=== PATIENT | male | born 1960 | race Caucasian/White ===

== ENCOUNTER 2016-10-03 10:13 | Emergency (ER) | payer OTHER ==
--- NOTE | 2016-10-03 10:20 | ER Document Report ---
ED Medical Screen (RME) - General Stated Complaint: TOOTHACHE Notes: Patient is a 56-year-old male presents emergency Department complaining of toothache. pain over upper right front and left lower teeth for about 3 weeks that has become more severe, admits to drainage. denies fevers or chills. patient says he has dental caries and decay from dry mouth from DM II. has dental appointment this week for evaluation of extraction I have greeted and performed a rapid initial assessment of this patient. A comprehensive ED assessment and evaluation of the patient, analysis of test results and completion of the medical decision making process will be conducted by additional ED providers. TRAVEL OUTSIDE OF THE [place] IN LAST 30 DAYS: No - Related Data Allergies/Adverse Reactions: No Known Allergies Allergy (Verified 05/21/16 08:15) Past Medical History - Past Medical History Cardiac Medical History: Reports: Hx Hypertension Pulmonary Medical History: Reports: Hx Pneumonia - Pneumonia, 10 years ago. Neurological Medical History: Denies: Hx Seizures Endocrine Medical History: Reports: Hx Diabetes Mellitus Type 1, Hx Diabetes Mellitus Type 2 GI Medical History: Reports: Hx Gastroesophageal Reflux Disease Musculoskeltal Medical History: Reports Hx Arthritis Psychiatric Medical History: Denies: Hx Depression Past Surgical History: Reports: Hx Cholecystectomy, Hx Orthopedic Surgery - left shoulder scope - Immunizations Immunizations up to date: Yes Hx Diphtheria, Pertussis, Tetanus Vaccination: Yes
[2016-10-03] MEDS ORDERED: CLINDAMYCIN 600 MG/D5W RTU 50 ML IV ONE (11:49)
--- NOTE | 2016-10-03 11:52 | ER Document Report ---
ED Oral Problem - General Chief Complaint: Toothache Stated Complaint: TOOTHACHE Time seen by provider: 11:50 Mode of Arrival: Ambulatory Information source: Patient Notes: 56-year-old male presents to ED for dental pain. All of his teeth are rotten and broken off at different stages. He states he has been having abscesses that have come up and he is cut them with his knife to the upper gums several times. States he can't get a dental appointment next week to examine his teeth and decide what the plan is for them. He states these abscesses have been coming up for at least the last 3 weeks that he has been cutting denies any fevers or chills TRAVEL OUTSIDE OF THE [place] IN LAST 30 DAYS: No - HPI Patient complains to provider of: Toothache Onset: Other - Chronic Quality of pain: Sharp, Throbbing Severity: Moderate Pain Level: 4 Associated symptoms: Toothache Worsened by: Cold Relieved by: Nothing Similar symptoms previously: Yes Recently seen / treated by doctor/dentist: Yes - Related Data Allergies/Adverse Reactions: No Known Allergies Allergy (Verified 10/03/16 10:17) Past Medical History - General Information source: Patient - Social History Smoking Status: Unknown if Ever Smoked Chew tobacco use (# tins/day): No Frequency of alcohol use: None Drug Abuse: None Family History: Arthritis, CAD, Malignancy, Other - Father: CAD, prostate cancer. Sister: Lung cancer. Mother: Arthritis, Alzheimer's. Patient has suicidal ideation: No Patient has homicidal ideation: No - Past Medical History Cardiac Medical History: Reports: Hx Hypertension Pulmonary Medical History: Reports: Hx Pneumonia - Pneumonia, 10 years ago. EENT Medical History: Reports: None Neurological Medical History: Reports: None Endocrine Medical History: Reports: Hx Diabetes Mellitus Type 2 Renal/ Medical History: Reports: None Malignancy Medical History: Reports None GI Medical History: Reports: Hx Gastroesophageal Reflux Disease Musculoskeltal Medical History: Reports Hx Arthritis Skin Medical History: Reports None Psychiatric Medical History: Reports: None Traumatic Medical History: Reports: None Infectious Medical History: Reports: None Past Surgical History: Reports: Hx Cholecystectomy, Hx Orthopedic Surgery - left shoulder scope - Immunizations Immunizations up to date: Yes Hx Diphtheria, Pertussis, Tetanus Vaccination: Yes Review of Systems - Review of Systems Constitutional: No symptoms reported EENT: Dental problem Cardiovascular: No symptoms reported Respiratory: No symptoms reported Gastrointestinal: No symptoms reported Genitourinary: No symptoms reported Male Genitourinary: No symptoms reported Musculoskeletal: No symptoms reported Skin: No symptoms reported Hematologic/Lymphatic: No symptoms reported Neurological/Psychological: No symptoms reported Physical Exam - Vital signs Vitals: Temp Pulse Resp BP Pulse Ox 97.7 F 87 18 153/89 H 95 10/03/16 10:16 10/03/16 10:16 10/03/16 10:16 10/03/16 10:16 10/03/16 10:16 Interpretation: Normal - General General appearance: Appears well, Alert - HEENT Head: Normocephalic, Atraumatic Eyes: Normal Pupils: PERRL Ears: Normal External canal: Normal Tympanic membrane: Normal Sinus: Normal Nasal: Normal, Other Mouth/Lips: Caries Mucous membranes: Normal Teeth diagram: 1 - Multiple severely decayed teeth. Many are broken off at the gumline. Upper and lower gums have gingivitis with 3 small areas that he has cut with a knife when he states they got large abscesses on them. No abscess is noted at this time Pharynx: Normal Neck: Normal - Respiratory Respiratory status: No respiratory distress Chest status: Nontender Breath sounds: Normal Chest palpation: Normal - Cardiovascular Rhythm: Regular Heart sounds: Normal auscultation Murmur: No - Abdominal Inspection: Normal Distension: No distension Bowel sounds: Normal Tenderness: Nontender Organomegaly: No organomegaly - Back Back: Normal, Nontender - Extremities General upper extremity: Normal inspection, Nontender, Normal color, Normal ROM , Normal temperature General lower extremity: Normal inspection, Nontender, Normal color, Normal ROM , Normal temperature, Normal weight bearing. No: Mike's sign - Neurological Neuro grossly intact: Yes Cognition: Normal Orientation: AAOx4 [place] Coma Scale Eye Opening: Spontaneous Erick Coma Scale Verbal: Oriented [place] Coma Scale Motor: Obeys Commands Erick Coma Scale Total: 15 Speech: Normal Motor strength normal: LUE, RUE, LLE, RLE Sensory: Normal - Psychological Associated symptoms: Normal affect, Normal mood - Skin Skin Temperature: Warm Skin Moisture: Dry Skin Color: Normal Course - Vital Signs Vital signs: Temp Pulse Resp BP Pulse Ox 97.8 F 82 16 140/82 H 98 10/03/16 13:03 10/03/16 13:03 10/03/16 13:03 10/03/16 13:03 10/03/16 13:03 Discharge - Discharge Clinical Impression: Pain due to dental caries, Gingivitis Disposition: HOME, SELF-CARE Additional Instructions: TOOTHACHE: Your pain is due to dental decay. The tooth must be repaired in order for you to feel better. You will, therefore, be referred to a dentist. We do not have dentists on the staff at [facility]. Severe swelling or drainage around a tooth usually means a dental abscess. This also requires evaluation and treatment by the dentist, but antibiotics may be prescribed while awaiting dental treatment. You should be rechecked immediately if you develop major swelling of the face, increasing pain, a lump in the jaw or gums, headache, difficulty swallowing, or fever. ORAL NARCOTIC MEDICATION: You have been given a prescription for pain control. This medication is a narcotic. It's best taken with food, as nausea can result if taken on an empty stomach. Don't operate machinery or drive within six hours of taking this medication. Do not combine this medicine with alcohol, or with any medication which can cause sedation (such as cold tablets or sleeping pills) unless you get permission from the physician. Narcotics tend to cause constipation. If possible, drink plenty of fluids and eat a diet high in fiber and fruits. Please be aware that prescription narcotics also have the potential for abuse. People become addicted to these medications because of the general sense of wellbeing that they induce. This feeling along with a significant reduction in tension, anxiety, and aggression provides a stimulating seductive quality to these drugs. Once your pain is under control, we encourage you to discard your unused narcotics. CLINDAMYCIN: You have been given a prescription for the antibiotic clindamycin. It is often prescribed for infections in the mouth, such as dental infections or abscesses, and for skin infections due to MRSA. It's important that you take all the medication, unless instructed otherwise by your physician. Failure to complete the entire course can result in relapse of your condition. Common side effects of antibiotics include nausea, intestinal cramping, or diarrhea. Women may develop vaginal yeast infections, and babies can get yeast (thrush) in the mouth following the use of antibiotics. Contact your physician if you develop significant side effects from this medication. Allergy to this antibiotic can result in hives, wheezing, faintness, or itching. If symptoms of allergy occur, stop the medication and call the doctor. Chronic Pain Control Stress, inactivity, and depression make pain more severe regardless of the cause of the pain. Stress and poor physical condition can cause pain such as headaches and backache. Relaxation: Rest in a quiet place with your eyes closed for 20 minutes twice daily. Concentrate on a pleasant image, or simply "feel" your breathing. Clear your mind. Stress management: Deal with your "stressors." Either take action, or eliminate the stressor from your life. Don't let things hang over you. Accept those things you can't change. Nutrition: Eat small, balanced meals -- don't skip, don't overeat. Meals should be high-carbohydrate, low-sugar, low-fat. Exercise: Exercise helps painful conditions and eases stress. Get 30 minutes of moderate exercise, five days a week. Do an activity that does not flare your pain. Precautions: Pain which continues to disrupt daily activities, or which changes in nature, requires a medical evaluation. Pain Clinic referral is available. We do not manage chronic pain in the Emergency Department. We will try to appropriately help you through an acute flare of your chronic painful condition , but for on-going chronic pain that does not improve, you will need to see your private doctor or instructor painting. We do not provide repeated medication management of chronic painful conditions. If you wish, we can provide the name of local pain management physicians. FOLLOW-UP CARE: You have been referred for follow-up care to the dentists listed below. Call the dentists office for an appointment as you were instructed or within the next two days. If you experience worsening or a significant change in your symptoms, notify the physician immediately or return to the Emergency Department at any time for re-evaluation. [facility] [address] [place], [place] Wednesday mornings, by appointment [facility] [address] [place] [address] [employer] [address] [facility] [address] [facility] [address] [facility] [email or web address] [facility] [address] [place] [address] Wednesday- 8:00am to 5:00 pm Will see patients from other [facility]. Charges based on income and family size and accepts Medicare, Medicaid, and Insurances Will pull molars [facility] [id number] Hours of Operation 8:00 am - 4:30 pm weekdays The following dental offices accept Medicaid: [facility] Dr. Ayala Dr. Posadas Dr. Goldsmith Dr. Moore Archie Lund Lutsavage, and [facility] oral surgery Dr. Garcia ([place]) Dr. Lang ([place]) [facility] Drs. Bojorquez and Ganseh ([place]) Dr. Castellon ([place]) [facility] Dr. Nix ([place]) Drs. Good and ([place]) Medicaid Care Line Prescriptions: Hydrocodone/Acetaminophen [[place] 5-325 mg Tablet] 1 tab PO Q6HP PRN #7 tablet PRN Reason: Clindamycin HCl [Cleocin 300 mg Capsule] 300 mg PO Q6 #28 capsule Forms: Elevated Blood Pressure
[2016-10-03 13:07] VITALS: BP 140/82
== END 2016-10-03 13:05 | disposition home or self-care (01) ==
LOC: ER 10:13
DX: K05.10 Chronic gingivitis, plaque induced (principal); K02.9 Dental caries, unspecified; K08.89 Other specified disorders of teeth and supporting structures
CPT/HCPCS: 96365; 99282

== ENCOUNTER 2016-10-23 09:41 | Emergency (ER) | payer OTHER ==
[2016-10-23] MEDS ORDERED: DEXAMETHASONE SOD PHOS INJ 10 MG/1 ML VIAL IM ONE (10:34)
[2016-10-23] MEDS ORDERED: KETOROLAC TROMETHAMINE 60 MG/2 ML SDV IM ONE (10:34)
--- NOTE | 2016-10-23 10:40 | ER Document Report ---
ED Extremity Problem, Upper - General Chief Complaint: Shoulder Pain Stated Complaint: RIGHT SHOULDER PAIN Time seen by provider: 10:10 Mode of Arrival: Ambulatory Information source: Patient Notes: 56-year-old male presents to ED for right shoulder pain he says that it has been hurting for about 1-1/2 weeks. 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 Yesterday as he was pending the pain got progressively worse. He states now he cannot even bean picker his little dog unable to reach above his head. States he took 2 Percocet and some Tylenol with no relief. TRAVEL OUTSIDE OF THE [place] 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 Exacerbated by: Movement, Exertion Relieved by: Rest, Positioning Similar symptoms previously: Yes Recently seen / treated by doctor: No - Related Data Allergies/Adverse Reactions: No Known Allergies Allergy (Verified 10/23/16 09:44) Past Medical History - General Information source: Patient - Social History Smoking Status: Never Smoker Cigarette use (# per day): No Chew tobacco use (# tins/day): No Smoking Education Provided: No Frequency of alcohol use: None Drug Abuse: None Occupation: [employer] Lives with: Friend - Roommate Family History: Arthritis, CAD, Hyperlipidemia, Hypertension, Malignancy, Other - Father: CAD, prostate cancer. Sister: Lung cancer. Mother: Arthritis, Alzheimer's.. denies: COPD, CVA, DM Patient has suicidal ideation: No Patient has homicidal ideation: No - Past Medical History Cardiac Medical History: Reports: Hx Hypertension Pulmonary Medical History: Reports: Hx Pneumonia - Pneumonia, 10 years ago. EENT Medical History: Reports: None Neurological Medical History: Reports: None. 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 GI Medical History: Reports: Hx Gastroesophageal Reflux Disease, Hx Hiatal Hernia, Hx Endoscopy Musculoskeltal Medical History: Reports Hx Arthritis, Reports Hx Musculoskeletal Deformity - Shoulder spurs left, Reports Hx Musculoskeletal Trauma - Wrist fracture toward left bicep Skin Medical History: Reports None Psychiatric Medical History: Reports: Hx Anxiety Traumatic Medical History: Reports: Hx Fractures - Wrist Infectious Medical History: Reports: None Past Surgical History: Reports: Hx Cholecystectomy, Hx Orthopedic Surgery - left shoulder spurs removed and left bicep prepared, Other - 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 - Immunizations Immunizations up to date: Yes Hx Diphtheria, Pertussis, Tetanus Vaccination: Yes Review of Systems - Review of Systems Constitutional: No symptoms reported EENT: No symptoms reported Cardiovascular: No symptoms reported Respiratory: No symptoms reported Gastrointestinal: No symptoms reported Genitourinary: No symptoms reported Male Genitourinary: No symptoms reported Musculoskeletal: Joint pain - Right shoulder, Muscle pain - Right shoulder Skin: No symptoms reported Hematologic/Lymphatic: No symptoms reported Neurological/Psychological: No symptoms reported Physical Exam - Vital signs Vitals: Temp Pulse Resp BP Pulse Ox 98.2 F 83 18 173/99 H 96 10/23/16 09:45 10/23/16 09:45 10/23/16 09:45 10/23/16 09:45 10/23/16 09:45 Interpretation: Normal - General General appearance: Appears well, Alert - HEENT Head: Normocephalic, Atraumatic Eyes: Normal Pupils: PERRL - Respiratory Respiratory status: No respiratory distress Chest status: Nontender Breath sounds: Normal Chest palpation: Normal - Cardiovascular Rhythm: Regular Heart sounds: Normal auscultation Murmur: No - Abdominal Inspection: Normal Distension: No distension Bowel sounds: Normal Tenderness: Nontender Organomegaly: No organomegaly - Back Back: Normal, Nontender - Extremities General upper extremity: Normal color, Normal temperature General lower extremity: Normal inspection, Nontender, Normal color, Normal ROM , Normal temperature, Normal weight bearing. No: Mike's sign Shoulder: Tender, Limited ROM - Neurological Neuro grossly intact: Yes Cognition: Normal Orientation: AAOx4 [place] Coma Scale Eye Opening: Spontaneous Erick Coma Scale Verbal: Oriented [place] Coma Scale Motor: Obeys Commands Erick Coma Scale Total: 15 Speech: Normal Motor strength normal: LUE, RUE, LLE, RLE Sensory: Normal - Psychological Associated symptoms: Normal affect, Normal mood - Skin Skin Temperature: Warm Skin Moisture: Dry Skin Color: Normal Course - Re-evaluation Re-evalutation: 10/23/16 12:29 Discussed x-rays and blood pressure with patient patient to follow-up with orthopedics for his shoulder pain and family doctor for his elevated blood pressure patient states that he would like a list of local doctors because it takes too long to get in to [facility] this was provided to patient. - Vital Signs Vital signs: Temp Pulse Resp BP Pulse Ox 98.2 F 83 18 173/99 H 96 10/23/16 09:45 10/23/16 09:45 10/23/16 09:45 10/23/16 09:45 10/23/16 09:45 - Diagnostic Test Radiology reviewed: Image reviewed, Reports reviewed Procedures - Immobilization Right Shoulder Immobilizer type: Sling Performed by: PCT Post-Proc Neuro Vasc Exam: Normal Alignment checked and good: Yes Discharge - Discharge Clinical Impression: Right shoulder injury Qualifiers: Encounter type: initial encounter Qualified Code(s): S49.91XA - Unspecified injury of right shoulder and upper arm, initial encounter Condition: Stable Disposition: HOME, SELF-CARE Instructions: Exercise Program for the Shoulder ([facility]), Family Physicians / Practices Additional Instructions: Shoulder Injury You have injured your shoulder. This usually results from stretching or tearing of the tendons during trauma. Time and protection are required in order to heal properly. Many injuries are quite disabling, and should be taken seriously. Initial treatment includes cold packs and a sling to rest the shoulder. The physician has assessed the seriousness of your injury, and has outlined a treatment plan. Understand that this treatment may change, depending on how you progress. If a re-examination was recommended, it is important that you follow up as instructed. Some shoulder injuries (such as partial tear of the rotator cuff) are only suspected after you've failed to improve. Call us if there's severe pain, numbness, or loss of function. Sling as Treatment A sling has been applied to protect the injury. This is adequate immobilization for this type of injury -- no cast or brace is required. Keep the sling on at all times until instructed to remove it by the doctor. Even though no cast or splint is needed, you must use the sling. If you use the arm too soon, it may not heal properly! If necessary, the sling can be adjusted for comfort. Return if you are encountering problems with the sling. Toradol Injection You have been given an injection of ketorolac tromethamine (Toradol). This is an excellent, safe drug for pain control. It also has potent antiinflammatory action. You should have significant pain relief within about one hour. Toradol is not addicting and is non-sedating. It does not interfere with driving or work. Call or return if you develop itching, hives, shortness of breath, or rash. STEROID MEDICATION: You have been given an injection of medicine of the cortisone/steroid class. This medication is used to control inflammation or allergy. It is often continued as a pill for a short period of time, until the acute process subsides. There are usually no side effects from short-term use of cortisone-like medications. Some persons feel an increased sense of well-being and are not sleepy at bedtime. Long-term use of cortisone medications is best avoided, unless required for a severe condition. If your condition does not remit, or relapses after the course of corticosteroid medication, you should consult your physician. Ultram Ultram is an excellent drug for pain relief. It is not a narcotic, but it works in a similar way. Ultram can take up to two hours for full effect. Although not addicting, Ultram is best avoided in patients with a history of drug abuse. Ultram should not be used with alcohol, sleeping pills, or narcotics. If you're prone to seizures, Ultram can make you more likely to have a seizure. Ultram can be hazardous when combined with MAO-inhibitor antidepressants (such as Nardil or Parnate). Be sure your doctor is aware of all medicines you are taking. Persons with severe liver or kidney disease should increase the time between doses of Ultram. Discuss this with your doctor if you're uncertain. Side effects of Ultram can include dizziness, nausea, constipation, sleepiness, and itching. (These side effects are also seen with narcotic pain medicines.) Please call your doctor if you have other disturbing effects. FOLLOW-UP CARE: If you have been referred to a physician for follow-up care, call the physician s office for an appointment as you were instructed or within the next two days. If you experience worsening or a significant change in your symptoms, notify the physician immediately or return to the Emergency Department at any time for re-evaluation. Prescriptions: Tramadol HCl [Ultram] 50 mg PO BIDP PRN #14 tablet PRN Reason: Pain Scale Of 4 Forms: Elevated Blood Pressure Referrals: [facility] [Primary Care Provider] - Follow up as needed ROEL MARTIN MD [ACTIVE STAFF] - Follow up as needed
[2016-10-23 12:41] VITALS: BP 151/97
== END 2016-10-23 12:25 | disposition home or self-care (01) ==
LOC: ER 09:41
DX: S49.91XA Unspecified injury of right shoulder and upper arm, initial encounter (principal); X58.XXXA Exposure to other specified factors, initial encounter
CPT/HCPCS: 99283; 96372; 73030; J1885; J1100

== ENCOUNTER 2017-05-04 09:57 | Emergency (ER) | payer OTHER ==
[2017-05-04 12:07] VITALS: BP 165/87
--- NOTE | 2017-05-04 12:10 | ER Document Report ---
ED General - General Chief Complaint: Leg Pain Stated Complaint: RIGHT LEG AND FOOT PAIN Time Seen by Provider: 05/04/17 10:16 TRAVEL OUTSIDE OF THE [place] IN LAST 30 DAYS: No - HPI Patient complains to provider of: Right leg swelling Notes: Patient coming in for right leg swelling and pain below the cath ongoing for the last 24-48 hours. Denies any recent travel denies any recent trauma. Patient denies a history PE in the past. Denies fevers chills nausea vomiting diarrhea. - Related Data Allergies/Adverse Reactions: No Known Allergies Allergy (Verified 05/04/17 10:01) Past Medical History - Social History Smoking Status: Never Smoker Chew tobacco use (# tins/day): No Frequency of alcohol use: None Drug Abuse: None Family History: Arthritis, CAD, Hyperlipidemia, Hypertension, Malignancy, Other - Father: CAD, prostate cancer. Sister: Lung cancer. Mother: Arthritis, Alzheimer's.. denies: COPD, CVA, DM - Past Medical History Cardiac Medical History: Reports: Hx Hypertension Pulmonary Medical History: Reports: Hx Pneumonia - Pneumonia, 10 years ago. Neurological Medical History: Denies: Hx Seizures Endocrine Medical History: Reports: Hx Diabetes Mellitus Type 2 Renal/ Medical History: Denies: Hx Peritoneal Dialysis GI Medical History: Reports: Hx Gastroesophageal Reflux Disease, Hx Hiatal Hernia, Hx Endoscopy Musculoskeltal Medical History: Reports Hx Arthritis, Reports Hx Musculoskeletal Deformity - Shoulder spurs left, Reports Hx Musculoskeletal Trauma - Wrist fracture toward left bicep Psychiatric Medical History: Reports: Hx Anxiety Traumatic Medical History: Reports: Hx Fractures - Wrist Past Surgical History: Reports: Hx Cholecystectomy, Hx Orthopedic Surgery - left shoulder spurs removed and left bicep prepared, Other - 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 - Immunizations Immunizations up to date: Yes Hx Diphtheria, Pertussis, Tetanus Vaccination: Yes Review of Systems - Review of Systems Constitutional: No symptoms reported EENT: No symptoms reported Cardiovascular: No symptoms reported Respiratory: No symptoms reported Gastrointestinal: No symptoms reported Genitourinary: No symptoms reported Male Genitourinary: No symptoms reported Musculoskeletal: Leg swelling Skin: No symptoms reported Hematologic/Lymphatic: No symptoms reported Neurological/Psychological: No symptoms reported -: Yes All other systems reviewed and negative Physical Exam - Vital signs Interpretation: Normal - General General appearance: Appears well, Alert - HEENT Head: Normocephalic, Atraumatic Eyes: Normal Pupils: PERRL - Respiratory Respiratory status: No respiratory distress Chest status: Nontender Breath sounds: Normal Chest palpation: Normal - Cardiovascular Rhythm: Regular Heart sounds: Normal auscultation Murmur: No - Abdominal Inspection: Normal Distension: No distension Bowel sounds: Normal Tenderness: Nontender Organomegaly: No organomegaly - Back Back: Normal, Nontender - Extremities General upper extremity: Normal inspection, Nontender, Normal color, Normal ROM , Normal temperature General lower extremity: Normal inspection, Nontender, Edema - 1-2+ edema of the right leg greater than the left. Patient does have pain to palpation of the right lower calf., Normal color, Normal ROM, Normal temperature, Normal weight bearing - Neurological Neuro grossly intact: Yes Cognition: Normal Orientation: AAOx4 [place] Coma Scale Eye Opening: Spontaneous [place] Coma Scale Verbal: Oriented [place] Coma Scale Motor: Obeys Commands Erick Coma Scale Total: 15 Speech: Normal Motor strength normal: LUE, RUE, LLE, RLE Sensory: Normal - Psychological Associated symptoms: Normal affect, Normal mood - Skin Skin Temperature: Warm Skin Moisture: Dry Skin Color: Normal Course - Re-evaluation Re-evalutation: 05/04/17 15:08 Doppler negative for DVT will have patient follow-up with local PCP also notified the ER social work specialist of need for follow-up. At this time patient was educated about elevation will be discharged home Discharge - Discharge Clinical Impression: Right leg swelling Condition: Good Disposition: HOME, SELF-CARE Instructions: Dependent Edema ([facility]), Elevation & Warmth ([facility]), Family Physicians / Practices Additional Instructions: Elevate your legs at night to help relieve the swelling. Follow-up with your primary care physician or the physicians provided. I will give her information to our ER social work specialist who will contact you and try and aid in establishing a follow-up appointmentAt this time there is no signs of acute injury infection blood clot causing your swelling this can be related to excess salt in her diet or excess fluid intake.
--- NOTE | 2017-05-04 16:14 | XCELERA REPORT ---
[address] [address] Lower Extremity Venous Evaluation Name: JESSICA REGAN Age: 56 yrs Gender: Male : 1960 Patient Status: Emergency Patient Location: ER Study Date: 05/04/2017 10:54 AM Procedure: Color flow and duplex imaging of the veins of the right lower extremity as well as the left Common Femoral vein. Reason For Study: RLE swelling Ordering Physician: ABHISHEK MADERA Performed By: Bethany Jean Right Sided Venous Evaluation Normal vessel filling wall to wall, compression and augmentation as well as Colour flow down to the infrageniculate veins. Left Sided Venous Evaluation The left common femoral vein is fully compressible. Spontaneous and phasic flow is present in the left common femoral vein. Interpretation Summary No duplex evidence of DVT or obstruction in the right lower extremity nor in the left Common Femoral vein. : ABHISHEK MADERA > Eriberto Castillo
== END 2017-05-04 12:07 | disposition home or self-care (01) ==
LOC: ER 09:57
DX: M79.89 Other specified soft tissue disorders (principal); M79.604 Pain in right leg; M79.661 Pain in right lower leg; M79.671 Pain in right foot; I10 Essential (primary) hypertension; E11.9 Type 2 diabetes mellitus without complications
CPT/HCPCS: 93971; 99284

== ENCOUNTER 2017-12-27 08:20 | Emergency (ER) | payer SELFPAY ==
[2017-12-27] MEDS ORDERED: VALSARTAN 40 MG TABLET PO ONE (08:53)
[2017-12-27] MEDS ORDERED: ASPIRIN 81 MG TABLET, CHEWABLE PO ONE (08:54)
--- NOTE | 2017-12-27 08:54 | ER Document Report ---
ED Medical Screen (RME) - General Chief Complaint: High Blood Pressure Stated Complaint: BLOOD PRESSURE ISSUE, CHEST PAIN Time Seen by Provider: 12/27/17 08:48 Mode of Arrival: Ambulatory Information source: Patient Notes: 57-year-old male history of hypertension who used to be 290 pounds but lost weight and was no longer on blood pressure medication presents with complaints of not feeling well over the past few days. Patient notes he has been less energetic, he denies any fevers or chills admits to intermittent mild chest discomfort which he states patient denies any neurological deficits but admits to mild headache blurry vision I have greeted and performed a rapid initial assessment of this patient. A comprehensive ED assessment and evaluation of the patient, analysis of test results and completion of the medical decision making process will be conducted by additional ED providers. PHYSICAL EXAMINATION: GENERAL: Well-appearing, well-nourished and in no acute distress. HEAD: Atraumatic, normocephalic. EYES: Pupils equal round extraocular movements intact, conjunctiva are normal. ENT: Nares patent NECK: Normal range of motion LUNGS: No respiratory distress Musculoskeletal: Normal range of motion NEUROLOGICAL: Normal speech, normal gait. PSYCH: Normal mood, normal affect. SKIN: Irritated right hair follicle parietal region TRAVEL OUTSIDE OF THE [place] IN LAST 30 DAYS: No - Related Data Allergies/Adverse Reactions: No Known Allergies Allergy (Verified 12/27/17 08:21) Past Medical History - Past Medical History Cardiac Medical History: Reports: Hx Hypertension Pulmonary Medical History: Reports: Hx Pneumonia - Pneumonia, 10 years ago. Neurological Medical History: Denies: Hx Seizures Endocrine Medical History: Reports: Hx Diabetes Mellitus Type 2 - no longer on medication Renal/ Medical History: Denies: Hx Peritoneal Dialysis GI Medical History: Reports: Hx Gastroesophageal Reflux Disease, Hx Hiatal Hernia, Hx Endoscopy Musculoskeltal Medical History: Reports Hx Arthritis, Reports Hx Musculoskeletal Deformity - Shoulder spurs left, Reports Hx Musculoskeletal Trauma - Wrist fracture toward left bicep Psychiatric Medical History: Reports: Hx Anxiety Traumatic Medical History: Reports: Hx Fractures - Wrist Past Surgical History: Reports: Hx Cholecystectomy, Hx Orthopedic Surgery - left shoulder spurs removed and left bicep prepared, Other - 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
[2017-12-27 09:31] LABS: ABSOLUTE EOSINOPHILS # (AUTO) 0.2 10^3/uL (0.0-0.6); ABSOLUTE LYMPHOCYTES (AUTO) 1.6 10^3/uL (0.5-4.7); ABSOLUTE MONOCYTES (AUTO) 0.4 10^3/uL (0.1-1.4); ABSOLUTE NEUT (AUTO) 3.7 10^3/uL (1.7-8.2); BASOPHILS % (AUTO) 0.6 % (0-2); EOSINOPHILS % (AUTO) 3.5 % (0-6); HEMATOCRIT 48.1 % (37.9-51.0); HEMOGLOBIN 16.2 g/dL (13.5-17.0); LYMPHOCYTES % (AUTO) 26.6 % (13-45); MEAN CORPUSCULAR HEMOGLOBIN 28.5 pg (27.0-33.4); MEAN CORPUSCULAR HGB CONC 33.6 g/dL (32.0-36.0); MEAN CORPUSCULAR VOLUME 85 fl (80-97); MONOCYTES % (AUTO) 6.7 % (3-13); PLATELET COUNT 187 10^3/uL (150-450); RED BLOOD COUNT 5.68 10^6/uL (4.35-5.55); RED CELL DISTRIBUTION WIDTH 14.4 % (11.5-14.0); SEGMENTED NEUTROPHILS % (AUTO) 62.6 % (42-78); TOTAL CELLS COUNTED % (AUTO) 100 %; WHITE BLOOD COUNT 5.9 10^3/uL (4.0-10.5)
--- NOTE | 2017-12-27 09:46 | RADIOLOGY REPORT (SQ) ---
EXAM DESCRIPTION: CHEST SINGLE VIEW COMPLETED DATE/TIME: 12/27/2017 9:21 am REASON FOR STUDY: chest pain COMPARISON: 01/17/2016 two-view chest 01/15/2014 AP chest EXAM PARAMETERS: NUMBER OF VIEWS: One view. TECHNIQUE: Single frontal radiographic view of the chest acquired. RADIATION DOSE: NA LIMITATIONS: None. FINDINGS: LUNGS AND PLEURA: No opacities, masses or pneumothorax. No pleural effusion. MEDIASTINUM AND HILAR STRUCTURES: No masses. Contour normal. HEART AND VASCULAR STRUCTURES: Heart normal in size. Normal vasculature. BONES: No acute findings. HARDWARE: None in the chest. OTHER: No other significant finding. IMPRESSION: NO ACUTE RADIOGRAPHIC FINDING IN THE CHEST. TECHNICAL DOCUMENTATION: JOB ID: [id number] [employer]- All Rights Reserved Reading location - IP/workstation name: [email or web address]
[2017-12-27 09:54] LABS: ALANINE AMINOTRANSFERASE 32 U/L (21-72); ALBUMIN 4.6 g/dL (3.5-5.0); ALKALINE PHOSPHATASE 96 U/L (38-126); ANION GAP 12 (5-19); ASPARTATE AMINO TRANSFERASE 33 U/L (17-59); BILIRUBIN,DIRECT 0.3 mg/dL (0.0-0.4); BILIRUBIN,TOTAL 0.4 mg/dL (0.2-1.3); BLOOD UREA NITROGEN 19 mg/dL (7-20); CALCIUM 9.6 mg/dL (8.4-10.2); CARBON DIOXIDE 30 mmol/L (22-30); CHLORIDE 104 mmol/L (98-107); CREATINE KINASE 105 U/L (55-170); GLUCOSE 94 mg/dL (75-110); POTASSIUM 4.5 mmol/L (3.6-5.0); SODIUM 145.7 mmol/L (137-145); TOTAL PROTEIN 7.5 g/dL (6.3-8.2)
--- NOTE | 2017-12-27 10:00 | ER Document Report ---
ED General <HEAVEN SIMS - Last Filed: 12/27/17 10:08> - General Mode of Arrival: Ambulatory Information source: Patient TRAVEL OUTSIDE OF THE [place] IN LAST 30 DAYS: No <AUBREY MORALES - Last Filed: 12/27/17 13:11> - General Chief Complaint: High Blood Pressure Stated Complaint: BLOOD PRESSURE ISSUE, CHEST PAIN Time Seen by Provider: 12/27/17 08:48 Notes: Patient is a 57 year old male with HTN, diabetes and chronic pain presents to the emergency department complaining of multiple symptoms including chest pain, general malaise, headaches, blood pressure problem and blurry vision. Patient states that over the last few days he just has not been feeling well and has been less energetic. Patient states that he has lost weight and decided to stop taking his blood pressure medication approximately 1 year ago. Patient describes his blurry vision as intermittent and seeing double onset 1 month ago. Patient also describes his chest pain as chest discomfort located on the left side. Patient denies any fevers or chills. Patient mentions pain in his right shoulder due to a torn rotator cuff and states he has been taking Ibuprofen and Tylenol to deal with the pain. He also states he has been without pain medication for a year further stating he generally feels better in regards to his chronic pain. (AUBREY MORALES) - Related Data Allergies/Adverse Reactions: No Known Allergies Allergy (Verified 12/27/17 08:21) Past Medical History - General Information source: Patient - Social History Smoking Status: Unknown if Ever Smoked Family History: Arthritis, CAD, Hyperlipidemia, Hypertension, Malignancy, Other - Father: CAD, prostate cancer. Sister: Lung cancer. Mother: Arthritis, Alzheimer's.. denies: COPD, CVA, DM Patient has suicidal ideation: No Patient has homicidal ideation: No - Past Medical History Cardiac Medical History: Reports: Hx Hypertension Pulmonary Medical History: Reports: Hx Pneumonia - Pneumonia, 10 years ago. Neurological Medical History: Denies: Hx Seizures Endocrine Medical History: Reports: Hx Diabetes Mellitus Type 2 - no longer on medication Renal/ Medical History: Denies: Hx Peritoneal Dialysis GI Medical History: Reports: Hx Gastroesophageal Reflux Disease, Hx Hiatal Hernia, Hx Endoscopy Musculoskeltal Medical History: Reports Hx Arthritis, Reports Hx Musculoskeletal Deformity - Shoulder spurs left, Reports Hx Musculoskeletal Trauma - Wrist fracture toward left bicep Psychiatric Medical History: Reports: Hx Anxiety Traumatic Medical History: Reports: Hx Fractures - Wrist Past Surgical History: Reports: Hx Cholecystectomy, Hx Orthopedic Surgery - left shoulder spurs removed and left bicep prepared, Other - 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 - Immunizations Immunizations up to date: Yes Hx Diphtheria, Pertussis, Tetanus Vaccination: Yes <CARMENMICHAELYUNG - Last Filed: 12/27/17 13:11> Review of Systems - Review of Systems Constitutional: See HPI, Malaise EENT: See HPI, Double vision Cardiovascular: See HPI, Chest pain Respiratory: No symptoms reported Gastrointestinal: No symptoms reported Genitourinary: No symptoms reported Male Genitourinary: No symptoms reported Musculoskeletal: See HPI Skin: No symptoms reported Hematologic/Lymphatic: No symptoms reported Neurological/Psychological: See HPI, Headaches -: Yes All other systems reviewed and negative <AUBREY MORALES - Last Filed: 12/27/17 13:11> Physical Exam - General General appearance: Appears well, Alert In distress: None - HEENT Head: Normocephalic, Other - Right parietal occipital has an area that is tender to palpation with some swelling and erythema, no fluctuance. Eyes: Normal Conjunctiva: Normal Extraocular movements intact: Yes Pupils: PERRL Neck: Normal - Respiratory Respiratory status: No respiratory distress Chest status: Tender - reprodicble left anterior chest wall tenderness to palpation, consitent with chest discomfort described in HPI. Breath sounds: Normal Chest palpation: Normal - Cardiovascular Rhythm: Regular Heart sounds: Normal auscultation Murmur: No Friction rub: No Gallop: None auscultated - Abdominal Inspection: Normal Distension: No distension Bowel sounds: Normal Tenderness: Nontender Organomegaly: No organomegaly - Back Back: Normal - Extremities General lower extremity: Normal ROM - Neurological Neuro grossly intact: Yes Cognition: Normal Orientation: AAOx4 [place] Coma Scale Eye Opening: Spontaneous [place] Coma Scale Verbal: Oriented [place] Coma Scale Motor: Obeys Commands [place] Coma Scale Total: 15 Speech: Normal - Psychological Associated symptoms: Normal affect, Normal mood - Skin Skin Temperature: Warm Skin Moisture: Dry Skin Color: Normal <AUBREY MORALES - Last Filed: 12/27/17 13:11> - Vital signs Vitals: Temp Pulse Resp BP Pulse Ox 98.2 F 77 18 187/106 H 96 06/11/18 08:33 12/27/17 08:33 12/27/17 08:33 12/27/17 08:33 12/27/17 08:33 Course - Laboratory Result Diagrams: 12/27/17 09:01 12/27/17 09:01 - Diagnostic Test Radiology reviewed: Image reviewed, Reports reviewed - Chest x-ray does not show an acute process. - EKG Interpretation by Me Rate: Normal - 82 Rhythm: NSR When compared to previous EKG there are: No significant change <HEAVEN SIMS - Last Filed: 12/27/17 10:08> - Laboratory Result Diagrams: 12/27/17 09:01 12/27/17 09:01 <AUBREY MORALES - Last Filed: 12/27/17 13:11> - Vital Signs Vital signs: Temp Pulse Resp BP Pulse Ox 98.2 F 77 17 172/117 H 95 12/27/17 08:33 12/27/17 08:33 12/27/17 10:01 12/27/17 10:01 12/27/17 10:01 - Laboratory Laboratory results interpreted by me: 12/27/17 12/27/17 09:01 09:01 RBC 5.68 H RDW 14.4 H Sodium 145.7 H Discharge <HEAVEN SIMS - Last Filed: 12/27/17 10:08> <AUBREY MORALES - Last Filed: 12/27/17 13:11> - Discharge Clinical Impression: Chest wall pain, Scalp cyst Hypertension Qualifiers: Hypertension type: essential hypertension Qualified Code(s): I10 - Essential ( primary) hypertension Condition: Stable Disposition: HOME, SELF-CARE Additional Instructions: Scalp Folliculitis: You have a scalp infection called folliculitis. This occurs when bacteria infect the hair follicles of the skin. Typically, redness and small pustules are found where hair shafts enter the skin. The usual treatment is antibiotic ointment, sometimes combined with cortisone-type medication. Warm compresses are often used. If the infection has moved deeper into the skin, oral antibiotics may be necessary. To avoid future episodes of folliculitis, you must identify (if possible) the factors which allowed this infection to start. If you develop increasing pain, swelling, fever, or red streaks, call the doctor or return for re-evaluation. Chest Wall Pain: Your chest pain has been diagnosed as coming from the chest wall. This is often caused by straining the muscles or joints in the chest during physical activity, direct trauma, coughing, or vigorous vomiting. Persons with arthritis are especially prone to this type of pain, due to inflammation of the cartilage joints near the breast bone. Occasionally, no cause can be found. Rest from strenuous physical activity. This kind of chest pain is usually made worse by movement of the chest. Depending on the symptoms, we may prescribe medicine for pain, muscle relaxation, and antiinflammatory effects. If the pain is new, and seems to be due to muscle strain, cold packs can help. Otherwise, apply gentle warmth to the painful area for 15 minutes every hour or two. You should contact the doctor immediately if things change. Further evaluation is needed if you develop a fever or cough, if the nature of the pain changes, or if you become short of breath. High Blood Pressure, Requiring Treatment: Your blood pressure is high. This is called "hypertension." You need treatment of your blood pressure. Pre-hypertension/Hypertension: The patient has been informed that they may have pre-hypertension or Hypertension based on a blood pressure reading in the emergency department. I recommend that the patient call the primary care provider listed on their discharge instructions or a physician of their choice this wee to arrange follow up for further evaluation of possible pre- hypertension or Hypertension. If left untreated, high blood pressure greatly increases your risk of heart attack and stroke. Please don't ignore this problem. If you have blood pressure medicine but aren't using it regularly, start taking it again. Some simple things you can do to help are: Get some aerobic exercise for at least 20 minutes on a daily basis. (See your doctor before beginning any new exercise program.) Eat a low-fat diet. Lose excess weight. Avoid salty foods and avoid adding salt to any of the foods you eat. Avoid diet pills, decongestants, "energizing" herbs, and other medicines that elevate blood pressure. There are many different medicines that treat blood pressure. If your medication causes unpleasant side effects, call your doctor. There are others you can try. Treating hypertension is a life-long investment in your health. Take the antibiotics and blood pressure medication as prescribed. Use warm soaks to the painful area on your scalp. Check your blood pressure every day. Follow-up with a local medical doctor if the scalp infection or the chest wall pain, or the blurred vision is not improving. Follow-up with a local medical doctor at some point to manage your blood pressure. RETURN TO THE EMERGENCY ROOM IF ANY NEW OR WORSENING SYMPTOMS. Prescriptions: Doxycycline Hyclate 100 mg PO BID #14 tablet Lisinopril 20 mg PO DAILY #30 tablet Scribe Attestation: 12/27/17 10:14 I personally performed the services described in the documentation, reviewed and edited the documentation which was dictated to the scribe in my presence, and it accurately records my words and actions. (HEAVEN SIMS) Scribe Documentation - Scribe Written by Tadeo:: Tadeo Villarreal, 12/27/2017 10:04 acting as scribe for :: Xander <AUBREY MORALES - Last Filed: 12/27/17 13:11>
[2017-12-27 10:04] LABS: CREATINE KINASE MB 0.93 ng/mL (<4.55)
[2017-12-27 10:05] LABS: TROPONIN I < 0.012 ng/mL
[2017-12-27 10:20] VITALS: BP 172/117
--- NOTE | 2017-12-27 13:26 | EKG REPORT ---
SEVERITY:- NORMAL ECG - SINUS RHYTHM : Confirmed by: Dandy Carmichael MD 27-Dec-2017 13:25:53
== END 2017-12-27 10:29 | disposition home or self-care (01) ==
LOC: ER 08:20
DX: R07.89 Other chest pain (principal); L72.9 Follicular cyst of the skin and subcutaneous tissue, unspecified; I10 Essential (primary) hypertension; R53.81 Other malaise; R51 Headache; H53.8 Other visual disturbances; M25.511 Pain in right shoulder; G89.29 Other chronic pain; E11.9 Type 2 diabetes mellitus without complications
CPT/HCPCS: 36415; 71045; 80053; 82550; 82553; 84484; 85025; 93005; 93010; 99284

== ENCOUNTER 2018-01-26 10:36 | Emergency (ER) | payer SELFPAY ==
[2018-01-26 10:43] VITALS: BP 150/93
--- NOTE | 2018-01-26 11:02 | ER Document Report ---
HPI - HPI Patient complains to provider of: Left elbow pain Onset: Last week Onset/Duration: Persistent Quality of pain: Achy Pain Level: 4 Context: Patient presents complaining of left elbow pain for the past week. Patient denies any injury or fever. Patient states that he does do a lot of heavy lifting at work. Pain increases with flexion and internal rotation of his left upper extremity. Associated Symptoms: Other - left elbow pain Exacerbated by: Movement Relieved by: Remaining still Similar symptoms previously: No Recently seen / treated by doctor: No - ROS ROS below otherwise negative: Yes Systems Reviewed and Negative: Yes All other systems reviewed and negative - CONSTITUTIONAL Constitutional: DENIES: Fever - NEURO Neurology: DENIES: Weakness - REPRODUCTIVE Reproductive: DENIES: : - MUSCULOSKELETAL Musculoskeletal: REPORTS: Extremity pain - L elbow. DENIES: Swelling - DERM Skin Color: Normal Skin Problems: None Past Medical History - General Information source: Patient - Social History Smoking Status: Never Smoker Chew tobacco use (# tins/day): No Frequency of alcohol use: None Drug Abuse: None Occupation: [employer] Family History: Arthritis, CAD, Hyperlipidemia, Hypertension, Malignancy, Other - Father: CAD, prostate cancer. Sister: Lung cancer. Mother: Arthritis, Alzheimer's.. denies: COPD, CVA, DM Patient has suicidal ideation: No Patient has homicidal ideation: No - Past Medical History Cardiac Medical History: Reports: Hx Hypertension Pulmonary Medical History: Reports: Hx Pneumonia - Pneumonia, 10 years ago. Neurological Medical History: Denies: Hx Seizures Endocrine Medical History: Reports: Hx Diabetes Mellitus Type 2 - no longer on medication Renal/ Medical History: Denies: Hx Peritoneal Dialysis GI Medical History: Reports: Hx Gastroesophageal Reflux Disease, Hx Hiatal Hernia, Hx Endoscopy Musculoskeltal Medical History: Reports Hx Arthritis, Reports Hx Musculoskeletal Deformity - Shoulder spurs left, Reports Hx Musculoskeletal Trauma - Wrist fracture toward left bicep Psychiatric Medical History: Reports: Hx Anxiety Traumatic Medical History: Reports: Hx Fractures - Wrist Past Surgical History: Reports: Hx Cholecystectomy, Hx Orthopedic Surgery - left shoulder spurs removed and left bicep prepared, Other - 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 IN LAST 30 DAYS: No - HEENT HEENT: Atraumatic, Normocephalic - NECK Neck: Normal Inspection, Supple - RESPIRATORY Respiratory: Breath Sounds Normal, No Respiratory Distress - CARDIOVASCULAR Cardiovascular: Regular Rate, Regular Rhythm Pulses: Normal: Radial - MUSCULOSKELETAL/EXTREMETIES Musculoskeletal/Extremeties: MAEW, FROM, Tender - Left elbow tenderness over lateral epicondyle, normal skin color and temperature overlying joint, No Edema. negative: Eccymosis - NEURO Level of Consciousness: Awake, Alert, Appropriate Motor/Sensory: No Motor Deficit - DERM Integumentary: Warm, Dry, No Rash Course - Re-evaluation Re-evalutation: 01/26/18 11:01 Attempt was made to access the [place] controlled substance database website, client server programmer was down at the time. - Vital Signs Vital signs: Temp Pulse Resp BP Pulse Ox 98.2 F 79 18 150/93 H 96 01/26/18 10:41 01/26/18 10:41 01/26/18 10:41 01/26/18 10:41 01/26/18 10:41 Discharge - Discharge Clinical Impression: Lateral epicondylitis of elbow Qualifiers: Laterality: left Qualified Code(s): M77.12 - Lateral epicondylitis, left elbow Condition: Stable Disposition: HOME, SELF-CARE Instructions: Oral Narcotic Medication ([facility]), Tennis Elbow (Lateral Epicondylitis) ([facility]) Additional Instructions: Return immediately for any new or worsening symptoms Followup with your primary care provider, call tomorrow to make a followup appointment Avoid repetitive movements of the left elbow including heavy lifting Follow-up with orthopedics for further evaluation, call today for an appointment Prescriptions: Diclofenac Sodium [Voltaren] 1 applic TP QID PRN #100 gel..gm. PRN Reason: Hydrocodone/Acetaminophen [Truchas 5-325 Tablet] 1 each PO Q4 PRN #15 tablet PRN Reason: Forms: Return to Work Referrals: [facility] ([facility]) [Provider Group] - Follow up as needed
== END 2018-01-26 11:06 | disposition home or self-care (01) ==
LOC: ER 10:36
DX: M77.12 Lateral epicondylitis, left elbow (principal); M25.522 Pain in left elbow; I10 Essential (primary) hypertension; E11.9 Type 2 diabetes mellitus without complications; Z90.49 Acquired absence of other specified parts of digestive tract
CPT/HCPCS: 99283

== ENCOUNTER 2019-04-13 08:12 | Emergency (ER) | payer SELFPAY ==
[2019-04-13] MEDS ORDERED: KETOROLAC TROMETHAMINE 60 MG/2 ML SDV IM ONE (09:17)
--- NOTE | 2019-04-13 09:17 | ER Document Report ---
ED General - General Chief Complaint: Knee Pain Stated Complaint: LEFT KNEE PAIN Time Seen by Provider: 04/13/19 08:44 Primary Care Provider: JANE DHALIWAL MD [ACTIVE PROVISIONAL STAFF] - Follow up as needed ARYA SARKAR MD [Primary Care Provider] - Follow up as needed TRAVEL OUTSIDE OF THE [place] IN LAST 30 DAYS: No - HPI Patient complains to provider of: left knee pain Onset: This morning Onset/Duration: Sudden Severity: Moderate Pain Level: 2 Context: 58 year old male arrives with complaints of Left knee pain. Injured playing golf when he shifted his weight to left side. No other injuries and no h/o same. No hip or ankle pain. Complains of pain and swelling and decreased ROM. Exacerbated by: Movement, Walking Relieved by: Denies - Related Data Allergies/Adverse Reactions: No Known Allergies Allergy (Verified 01/26/18 10:37) Past Medical History - Social History Smoking Status: Never Smoker Chew tobacco use (# tins/day): No Frequency of alcohol use: None Drug Abuse: None Family History: Arthritis, CAD, Hyperlipidemia, Hypertension, Malignancy, Other - Father: CAD, prostate cancer. Sister: Lung cancer. Mother: Arthritis, Alzheimer's.. denies: COPD, CVA, DM Patient has suicidal ideation: No Patient has homicidal ideation: No - Past Medical History Cardiac Medical History: Reports: Hx Hypertension Pulmonary Medical History: Reports: Hx Pneumonia - Pneumonia, 10 years ago. Neurological Medical History: Denies: Hx Seizures Endocrine Medical History: Reports: Hx Diabetes Mellitus Type 2 - no longer on medication Renal/ Medical History: Denies: Hx Peritoneal Dialysis GI Medical History: Reports: Hx Gastroesophageal Reflux Disease, Hx Hiatal Hernia, Hx Endoscopy Musculoskeletal Medical History: Reports Hx Arthritis, Reports Hx Musculoskeletal Deformity - Shoulder spurs left, Reports Hx Musculoskeletal Trauma - Wrist fracture toward left bicep Psychiatric Medical History: Reports: Hx Anxiety Traumatic Medical History: Reports: Hx Fractures - Wrist Past Surgical History: Reports: Hx Cholecystectomy, Hx Orthopedic Surgery - left shoulder spurs removed and left bicep prepared, Other - 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 - Immunizations Immunizations up to date: Yes Hx Diphtheria, Pertussis, Tetanus Vaccination: Yes Review of Systems - Review of Systems Constitutional: No symptoms reported EENT: No symptoms reported Cardiovascular: No symptoms reported Respiratory: No symptoms reported Gastrointestinal: No symptoms reported Genitourinary: No symptoms reported Male Genitourinary: No symptoms reported Musculoskeletal: See HPI Skin: No symptoms reported Hematologic/Lymphatic: No symptoms reported Neurological/Psychological: No symptoms reported Physical Exam - Vital signs Vitals: Temp Pulse Resp BP Pulse Ox 97.8 F 87 16 140/80 H 93 04/13/19 08:16 04/13/19 08:16 04/13/19 08:16 04/13/19 08:16 04/13/19 08:16 Interpretation: Normal - General General appearance: Appears well, Alert - HEENT Head: Normocephalic, Atraumatic Eyes: Normal Pupils: PERRL - Respiratory Respiratory status: No respiratory distress Chest status: Nontender Breath sounds: Normal Chest palpation: Normal - Cardiovascular Rhythm: Regular Heart sounds: Normal auscultation Murmur: No - Abdominal Inspection: Normal Distension: No distension Bowel sounds: Normal Tenderness: Nontender Organomegaly: No organomegaly - Back Back: Normal, Nontender - Extremities General upper extremity: Normal inspection, Nontender, Normal color, Normal ROM, Normal temperature General lower extremity: Normal inspection, Nontender, Normal color, Normal ROM, Normal temperature, Normal weight bearing. No: Mike's sign - Neurological Neuro grossly intact: Yes Cognition: Normal Orientation: AAOx4 [place] Coma Scale Eye Opening: Spontaneous Erick Coma Scale Verbal: Oriented [place] Coma Scale Motor: Obeys Commands [place] Coma Scale Total: 15 Speech: Normal Motor strength normal: LUE, RUE, LLE, RLE Sensory: Normal - Psychological Associated symptoms: Normal affect, Normal mood - Skin Skin Temperature: Warm Skin Moisture: Dry Skin Color: Normal Course - Vital Signs Vital signs: Temp Pulse Resp BP Pulse Ox 97.9 F 79 20 136/90 H 100 04/13/19 10:37 04/13/19 10:37 04/13/19 10:37 04/13/19 10:37 04/13/19 10:37 Discharge - Discharge Clinical Impression: Left medial knee pain Left knee pain Qualifiers: Chronicity: acute Qualified Code(s): M25.562 - Pain in left knee Condition: Good Disposition: HOME, SELF-CARE Instructions: Use of Crutches ([facility]), Ice & Elevation ([facility]), Suspected Internal Knee Injury ([facility]), Knee Immobilizing Splint ([facility]) Additional Instructions: Rest, ice and elevate left knee. Please return here for any problems or any concerns. Prescriptions: Hydrocodone Bit/Acetaminophen [Hydrocodon-Acetaminophen 5-325] 1 each PO TID #12 tablet Referrals: ARYA SARKAR MD [Primary Care Provider] - Follow up as needed JANE DHALIWAL MD [ACTIVE PROVISIONAL STAFF] - Follow up as needed
--- NOTE | 2019-04-13 10:03 | RADIOLOGY REPORT (SQ) ---
EXAM DESCRIPTION: KNEE LEFT 4 VIEW COMPLETED DATE/TIME: 04/13/2019 9:49 am REASON FOR STUDY: Left knee swelling and bone tenderness COMPARISON: None. NUMBER OF VIEWS: Four views. TECHNIQUE: AP, lateral, and both oblique radiographic images acquired of the left knee. LIMITATIONS: None. FINDINGS: MINERALIZATION: Normal. BONES: No acute fracture or dislocation. No worrisome bone lesions. JOINT: No effusion. SOFT TISSUES: No soft tissue swelling. No radio-opaque foreign body. OTHER: No other significant finding. IMPRESSION: NEGATIVE STUDY OF THE LEFT KNEE. NO RADIOGRAPHIC EVIDENCE OF ACUTE INJURY. TECHNICAL DOCUMENTATION: JOB ID: [id number] [employer]- All Rights Reserved Reading location - IP/workstation name: [email or web address]
[2019-04-13 10:38] VITALS: BP 136/90
== END 2019-04-13 11:22 | disposition home or self-care (01) ==
LOC: ER 08:12
DX: M25.562 Pain in left knee (principal); I10 Essential (primary) hypertension; E11.9 Type 2 diabetes mellitus without complications
CPT/HCPCS: 99283; 96372; 73564; L1830; J1885

== ENCOUNTER 2019-04-24 08:47 | Emergency (ER) | payer SELFPAY ==
[2019-04-24] MEDS ORDERED: OXYCODONE-ACETAMINOPHEN 5-325 MG TABLET PO ONE (10:02)
--- NOTE | 2019-04-24 10:05 | ER Document Report ---
HPI - HPI Time Seen by Provider: 04/24/19 09:46 Pain Level: 5 Notes: Patient is a 58-year-old male presenting to the emergency department with complaints of left knee pain. Patient reports he injured his knee approximately 2 weeks ago. He states he was playing golf when he stepped wrong twisting his knee. He reports he was seen here in this ER placed in a immobilizer and crutches and referred to orthopedics. He states he went to see orthopedics who apparently instructed him to stop using the knee immobilizer and crutches. Patient reports that his pain was improving and then returned sharply and he is now unable to bear weight on his knee. - CONSTITUTIONAL Constitutional: DENIES: Fever, Chills - EENT EENT: DENIES: Sore Throat, Ear Pain, Eye problems - NEURO Neurology: DENIES: Headache, Weakness, Vision blurred, Dizzinesss / Vertigo - CARDIOVASCULAR Cardiovascular: DENIES: Chest pain - RESPIRATORY Respiratory: DENIES: Trouble Breathing, Coughing - GASTROINTESTINAL Gastrointestinal: DENIES: Abdominal Pain, Black / Bloody Stools - URINARY Urinary: DENIES: Dysuria, Urgency, Frequency - REPRODUCTIVE Reproductive: DENIES: : - MUSCULOSKELETAL Musculoskeletal: REPORTS: Extremity pain - left knee Past Medical History - General Information source: Patient - Social History Smoking Status: Current Every Day Smoker Frequency of alcohol use: None Drug Abuse: None Family History: Arthritis, CAD, Hyperlipidemia, Hypertension, Malignancy, Other - Father: CAD, prostate cancer. Sister: Lung cancer. Mother: Arthritis, Alzheimer's.. denies: COPD, CVA, DM Patient has suicidal ideation: No Patient has homicidal ideation: No - Past Medical History Cardiac Medical History: Reports: Hx Hypertension Pulmonary Medical History: Reports: Hx Pneumonia - Pneumonia, 10 years ago. Neurological Medical History: Denies: Hx Seizures Endocrine Medical History: Reports: Hx Diabetes Mellitus Type 2 - no longer on medication Renal/ Medical History: Denies: Hx Peritoneal Dialysis GI Medical History: Reports: Hx Gastroesophageal Reflux Disease, Hx Hiatal Hernia, Hx Endoscopy Musculoskeletal Medical History: Reports Hx Arthritis, Reports Hx Musculoskeletal Deformity - Shoulder spurs left, Reports Hx Musculoskeletal Trauma - Wrist fracture toward left bicep Psychiatric Medical History: Reports: Hx Anxiety Traumatic Medical History: Reports: Hx Fractures - Wrist Past Surgical History: Reports: Hx Cholecystectomy, Hx Orthopedic Surgery - left shoulder spurs removed and left bicep prepared, Other - 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 HEAD: Atraumatic, normocephalic. EYES: Pupils equal round and reactive to light, extraocular movements intact, sclera anicteric, conjunctiva are normal. ENT: Nares patent, oropharynx clear without exudates. Moist mucous membranes. NECK: Normal range of motion, supple without lymphadenopathy LUNGS: Breath sounds clear to auscultation bilaterally and equal. No wheezes rales or rhonchi. HEART: Regular rate and rhythm without murmurs ABDOMEN: Soft, nontender, nondistended abdomen. No guarding, no rebound. No masses appreciated. Musculoskeletal: Limited range of motion to left knee, point tenderness over the patella, mild swelling without erythema or heat. Strong popliteal pulse, strong dorsalis pedis pulse. NEUROLOGICAL: Cranial nerves grossly intact. Normal speech. Normal sensory, motor exams PSYCH: Normal mood, normal affect. SKIN: Warm, Dry, normal turgor, no rashes or lesions noted. - INFECTION CONTROL TRAVEL OUTSIDE OF THE [place] IN LAST 30 DAYS: No Course - Re-evaluation Re-evalutation: Lower Extremity CT 04/24/19 10:01 IMPRESSION: No acute fracture or malalignment. Lower Extremity MRI 04/24/19 12:01 IMPRESSION: Mild chondromalacia patella. Otherwise unremarkable MRI left knee 04/24/19 15:[address] Berman, requested him to come see this patient. Dr. Berman in to see patient, discussed test results, agrees with d/c home and RX for pain medications. - Vital Signs Vital signs: Temp Pulse Resp BP Pulse Ox 98.2 F 90 16 151/93 H 96 04/24/19 08:52 04/24/19 08:54 04/24/19 08:52 04/24/19 08:54 04/24/19 08:52 Discharge - Discharge Clinical Impression: Knee injury Qualifiers: Encounter type: subsequent encounter Laterality: left Qualified Code(s): S89.92XD - Unspecified injury of left lower leg, subsequent encounter Condition: Stable Disposition: HOME, SELF-CARE Additional Instructions: Please keep the follow-up you have with your primary care provider for Wednesday. Maintain a nonweightbearing status at this time until your pain has subsided. Continue taking ibuprofen 600 mg every 6 hours as this will help with inflammation. Use the narcotic pain medication for severe pain only. You may also use ice and elevation as this will likely help with the pain and swelling. Prescriptions: Oxycodone HCl/Acetaminophen [Percocet 5-325 mg Tablet] 1 tab PO Q4H PRN #16 tablet PRN Reason: Referrals: ARYA SARKAR MD [Primary Care Provider] - Follow up as needed
--- NOTE | 2019-04-24 11:25 | RADIOLOGY REPORT (SQ) ---
EXAM DESCRIPTION: CT LT LOWER EXTREMITY WITHOUT COMPLETED DATE/TIME: 04/24/2019 10:20 am REASON FOR STUDY: injury to knee, unable to bear weight COMPARISON: Left knee four views 04/13/2019 TECHNIQUE: CT scan of the left knee performed without intravenous or oral contrast. Images reviewe d with soft tissue and bone windows. Reconstructed coronal and sagittal MPR images reviewed. All im ages stored on PACS. All CT scanners at this facility use dose modulation, iterative reconstruction, and/or weight based d osing when appropriate to reduce radiation dose to as low as reasonably achievable (ALARA). [facility]: Dose Right [facility]: CareDose [facility]: Dose Right [facility]: Teradose 4D [facility]: Quid RADIATION DOSE: CT Rad equipment meets quality standard of care and radiation dose reduction techniq ues were employed. CTDIvol: 4.1 mGy. DLP: 124 mGy-cm. mGy. LIMITATIONS: None. FINDINGS: Normal bone density. No joint effusion. No intra-articular loose bodies. There is minimal soft tissue swelling in the prepatellar soft tissues/subcutaneous fat on axial image 63-71, and sagittal image 11. The anterior and posterior cruciate ligaments are grossly normal in size. Medial and lateral collate ral ligaments are grossly intact. There is mild tricompartment joint space narrowing and osteophyte formation. Results discussed with Erika Seay in the emergency room. IMPRESSION: No acute fracture or malalignment. TECHNICAL DOCUMENTATION: JOB ID: [id number] Quality ID # [id number]: Final reports with documentation of one or more dose reduction techniques (e.g., Au tomated exposure control, adjustment of the mA and/or kV according to patient size, use of iterative reconstruction technique) 2010 [employer]- All Rights Reserved Reading location - IP/workstation name: [email or web address]
[2019-04-24] MEDS ORDERED: MORPHINE SULFATE 10 MG/ML INJ IM ONE (12:24)
--- NOTE | 2019-04-24 13:36 | RADIOLOGY REPORT (SQ) ---
EXAM DESCRIPTION: MRI LT LOWER JOINT WITHOUT COMPLETED DATE/TIME: 04/24/2019 1:12 pm REASON FOR STUDY: injury 2 weeks ago cannot bear weight COMPARISON: CT left lower extremity 04/24/2019 Left knee four views 04/13/2019 TECHNIQUE: Leftknee images acquired and stored on PACS. Multiplanar images include fat sensitive se quences as T1, water sensitive sequences as FST2 or STIR, cartilage sensitive sequences as FSPD, and gradient echo sequences. LIMITATIONS: None. FINDINGS: JOINT AND BURSAE: No effusion. BONE CORTEX AND MARROW: No alteration of signal to suggest marrow replacement. No worrisome bone lesi ons. No occult fracture. ACL: Intact PCL: Intact. MCL: Intact. No periligamentous edema or fluid. LCL: Intact. No periligamentous edema or fluid. MEDIAL MENISCUS: No tears. No abnormal signal. LATERAL MENISCUS: No tears. No abnormal signal. MEDIAL COMPARTMENT: Cartilage preserved. No bone bruises or reactive marrow edema. No osteophytes. LATERAL COMPARTMENT: Cartilage preserved. No bone bruises or reactive marrow edema. No osteophytes. PATELLA: Mild patellar chondromalacia. No subchondral cysts. Medial and lateral retinacula intact. EXTENSOR MECHANISM: Intact. Quadriceps and patella tendons normal. SOFT TISSUES: Adjacent muscles and subcutaneous tissues normal. Normal flow void in popliteal artery and vein. OTHER: No other significant finding. IMPRESSION: Mild chondromalacia patella. Otherwise unremarkable MRI left knee TECHNICAL DOCUMENTATION: JOB ID: [id number] [employer]- All Rights Reserved Reading location - IP/workstation name: [email or web address]
[2019-04-24 15:48] VITALS: BP 176/87
== END 2019-04-24 15:46 | disposition home or self-care (01) ==
LOC: ER 08:47
DX: S89.92XD Unspecified injury of left lower leg, subsequent encounter (principal); M25.562 Pain in left knee; X50.1XXD Overexertion from prolonged static or awkward postures, subsequent encounter; F17.200 Nicotine dependence, unspecified, uncomplicated; I10 Essential (primary) hypertension; E11.9 Type 2 diabetes mellitus without complications
CPT/HCPCS: 73721; 73700; J2270; 96372; 99284